=== PATIENT | female | born 1990 | race Caucasian/White ===

== ENCOUNTER 2020-07-02 00:09 | Emergency (ER) | payer MEDICAID ==
[~2020-07-02] VITALS: Ht 162.6 cm; Wt 77.0 kg
[2020-07-02 00:45] VITALS: BP 138/62
== END 2020-07-02 01:19 | disposition home or self-care (01) ==
LOC: ER 00:09
DX: F10.129 Alcohol abuse with intoxication, unspecified (principal); Y90.0 Blood alcohol level of less than 20 mg/100 ml; Z98.890 Other specified postprocedural states
CPT/HCPCS: 99283